=== PATIENT | male | born 2005 | race African-American/Black ===

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

== ENCOUNTER 2024-04-24 22:04 | Emergency (ER) | payer OTHER ==
[~2024-04-24] VITALS: Ht 188 cm; Wt 74.8 kg
[2024-04-24 22:09] VITALS: BP 139/77
[2024-04-24] MEDS ORDERED: RX Prepack 6 Tabs Oxycodone 5mg UD ONE (22:55)
== END 2024-04-24 23:08 | disposition home or self-care (01) ==
LOC: ER 22:04
DX: S92.415A Nondisplaced fracture of proximal phalanx of left great toe, initial encounter for closed fracture (principal); F17.210 Nicotine dependence, cigarettes, uncomplicated; V00.131A Fall from skateboard, initial encounter
CPT/HCPCS: 29515; 73620; 99283-25; A9270